=== PATIENT | male | born 1980 | race Caucasian/White ===

== ENCOUNTER 2016-07-11 08:43 | Emergency (ER) | payer SELFPAY ==
[2016-07-11 08:54] VITALS: BMI 30.2
[2016-07-11] MEDS ORDERED: MORPHINE 4 MG/ML INJECTION IV ONE ×2 (09:40→11:25)
[2016-07-11] MEDS ORDERED: ONDANSETRON HCL 4 MG/2 ML VIAL IV ONE (09:40)
[2016-07-11] MEDS ORDERED: NS 1,000 ML IV ONE (09:40)
[2016-07-11] MEDS ORDERED: Pharmacy Review for Metformin - IV Contrast Given SCH (10:00)
[2016-07-11 10:07] LABS: AUTOMATED BASOPHIL 0.5 % (0-2); AUTOMATED EOSINOPHIL 3.4 % (0-5); AUTOMATED LYMPH 11.4 % (17-44); AUTOMATED MONOCYTE 8.6 % (3-10); AUTOMATED NEUTROPHIL 76.1 % (45-76); MPV 8.5 fL (7.4-10.4)
[2016-07-11 10:17] LABS: BLOOD UREA NITROGEN 10 MG/DL (9-20); CALCIUM 9.7 MG/DL (8.4-10.2); CALCULATED OSMOLALITY 266 MOs/Kg (270-290); CHLORIDE 103 mEq/L (98-107); GLUCOSE 87 MG/DL (70-99); SODIUM LEVEL 139 mEq/L (137-146); TOTAL PROTEIN 7.8 G/DL (6.3-8.2)
[2016-07-11 10:18] LABS: LEUKOCYTES/URINE NEG (NEGATIVE); NITRITE/URINE NEG (NEGATIVE); RBC/URINE 0-2 (0-2); URINE OCCULT BLOOD NEG (NEG/TRACE); WBC/URINE 0-2 (0-2)
--- NOTE | 2016-07-11 10:26 | EDPRACDOC ---
- General Information Chief Complaint: Abdominal Pain Stated Complaint: ABD PAIN/ VOMITING Time Seen by Provider: 07/11/16 09:16 Information Source: Patient Mode Of Arrival: Car Home Medications: Home Medications Ondansetron [Zofran Odt] 4 mg PO Q6H PRN #20 tab.rapdis 07/11/16 Oxycodone Immediate Release [Oxycodone Immediate Release (OxyIR)] 5 mg PO Q6H PRN #20 tab 07/11/16 Allergies/Adverse Reactions: Allergies Allergy/AdvReac Type Severity Reaction Status Date / Time No Known Allergies Allergy Verified 07/11/16 08:54 - History of Present Illness Onset: THIS AM HPI: PT PRESENTS WITH NAUSEA, VOMITING, LLQ PAIN THAT BEGAN LAST NIGHT. DENIES FEVER OR CHILLS. DENIES DIARRHEA. PT HAS NEVER HAD ANY ABDOMINAL SURGERIES. PT STATES HE HAS HAD DYSURIA, NO TESTICULAR PAIN. Pain Location: Reports: LLQ Pain Context: Reports: Spontaneous Pain Severity: Moderate Pain Quality: Reports: Sharp, Stabbing Pain Radiation: Reports: No Radiation Adult Abdominal History: Denies: Abdominal Surgery, Urolithiasis, Bowel Obstruction, Similar Pain (dx) Modifying Factors: improves with: Nothing Associated Signs & Symptoms: Reports: Nausea, Vomiting Oral Intake: Decreased Urinary Output: Normal ED Past Medical History - History Reviewed Yes Nurses notes reviewed and agree except as marked - Patient Medical History Psychological History: Denies: Depression - Social Medical History Smoking Status: Heavy tobacco smoker (5 or more cigarettes/day or daily pipe/ cigar) EDM Review of Systems - Review of Systems ROS Negative Except as Marked: Yes All systems reviewed and were negative except as marked - Physical Exam Constitutional: Alert (PT APPEARS UNCOMFORTABLE) Oriented to: Time, Person, Place Last recorded Vital Signs: Last Vital Signs Temp 98.1 F 07/11/16 11:19 Pulse 69 07/11/16 12:05 Resp 18 07/11/16 12:05 BP 118/79 07/11/16 12:05 Pulse Ox 96 07/11/16 12:05 Oxygen Pulse Oxygen Saturation 96 O2 Device Room Air Oxygen Flow Rate Fraction of Inspired Oxygen ( FIO2) - HEENT Head: Normal ( normocephalic) Eye Exam: Normal (PERRL, EOMI, Sclera white) Oropharynx: Normal (Pharynx:Moist without exudate,Gums-no swelling) Nose: No Symptoms Reported (septum midline) Neck: Normal (FROM, trachea at midline) - Respiratory/Cardiovascular Respiratory: Normal - CTA (BBS clear to auscultation without adventitious sounds ) Cardiovascular: Normal (RRR without murmur, gallop or rub) - GI Auscultation: Normal (NABS) Palpation: Normal (Soft,No rebound or guarding, non distended) Tenderness: Moderate, LLQ Garcia's Sign: Negative Rectal Exam: Deferred - Musculoskeletal Back: Normal (Non-Tender) Extremities: Normal (Normal tone, Pulses 2+ No cyanosis or edema, FROM) - Integumentary Skin: Normal, Warm, Dry Lymphatics: Normal (no adenopathy) - Neurologic Memory Impaired: Normal Motor Function: Normal (Normal tone, Pulses 2+ No cyanosis or edema, FROM) Cranial Nerve: Normal (CN II-X11 intact sensation, strength 5/5) Cerebellar: Normal Mood Description: Normal Perception: Normal - Differential Diagnosis Diverticulitis, Gastroenteritis - Results All Results Reviewed and Normal except as Highlighted below: Yes 07/11/16 09:05 07/11/16 09:05 WBC 7.2 xk/uL (3.8-10.8) 07/11/16 09:05 RBC 4.89 xM/uL (4.70-6.10) 07/11/16 09:05 Hgb 16.3 g/dL (14.0-18.0) 07/11/16 09:05 Hct 48.1 % (42-52) 07/11/16 09:05 MCV 98 fL (80-94) H 07/11/16 09:05 MCH 33.3 pg (27-32) H 07/11/16 09:05 MCHC 33.8 g/dl (33-36) 07/11/16 09:05 RDW 14.3 % (11.5-14.5) 07/11/16 09:05 Plt Count 204 xk/uL (130-400) 07/11/16 09:05 MPV 8.5 fL (7.4-10.4) 07/11/16 09:05 Neut % (Auto) 76.1 % (45-76) H 07/11/16 09:05 Lymph % (Auto) 11.4 % (17-44) L 07/11/16 09:05 [place] % (Auto) 8.6 % (3-10) 07/11/16 09:05 Eos % (Auto) 3.4 % (0-5) 07/11/16 09:05 Baso % (Auto) 0.5 % (0-2) 07/11/16 09:05 Absolute Neuts (auto) 5.47 xk/uL (1.7-8.2) 07/11/16 09:05 Absolute Lymphs (auto) 0.79 xk/uL (0.65-4.75) 07/11/16 09:05 Sodium 139 mEq/L (137-146) 07/11/16 09:05 Potassium 4.7 mEq/L (3.5-5.1) 07/11/16 09:05 Chloride 103 mEq/L (98-107) 07/11/16 09:05 Carbon Dioxide 25 mMOL/L (22-33) 07/11/16 09:05 Anion Gap 16 mEq/L (8-16) 07/11/16 09:05 BUN 10 MG/DL (9-20) 07/11/16 09:05 Creatinine 0.70 MG/DL (0.66-1.25) 07/11/16 09:05 Estimated GFR (MDRD) > 60 mL/min (>=60) 07/11/16 09:05 Glucose 87 MG/DL (70-99) 07/11/16 09:05 Calculated Osmolality 266 MOs/Kg (270-290) L 07/11/16 09:05 Calcium 9.7 MG/DL (8.4-10.2) 07/11/16 09:05 Total Bilirubin 2.3 MG/DL (0.2-1.3) H 07/11/16 09:05 AST 52 IU/L (17-59) 07/11/16 09:05 ALT 55 IU/L (21-72) 07/11/16 09:05 Alkaline Phosphatase 96 IU/L (38-126) 07/11/16 09:05 Total Protein 7.8 G/DL (6.3-8.2) 07/11/16 09:05 Albumin 4.5 G/DL (3.5-5.0) 07/11/16 09:05 Lipase 101 U/L (23-300) 07/11/16 09:05 Urine Color Yellow 07/11/16 09:50 Urine Clarity Clear 07/11/16 09:50 Urine pH 5.0 (5.0-8.0) 07/11/16 09:50 Ur Specific [place] 1.025 (1.003-1.035) 07/11/16 09:50 Urine Protein Neg (NEG/TRACE) 07/11/16 09:50 Urine Glucose (UA) Neg (NEGATIVE) 07/11/16 09:50 Urine Ketones 1+ (NEGATIVE) H 07/11/16 09:50 Urine Occult Blood Neg (NEG/TRACE) 07/11/16 09:50 Urine Nitrite Neg (NEGATIVE) 07/11/16 09:50 Urine Bilirubin Neg (NEGATIVE) 07/11/16 09:50 Urine Urobilinogen <2.0 MG/DL (0-1) 07/11/16 09:50 Ur Leukocyte Esterase Neg (NEGATIVE) 07/11/16 09:50 Urine RBC 0-2 (0-2) 07/11/16 09:50 Urine WBC 0-2 (0-2) 07/11/16 09:50 Ur Epithelial Cells Occ 07/11/16 09:50 Urine Bacteria Few (NEG/FEW) 07/11/16 09:50 Urine Mucus Large (NEG/OCC) 07/11/16 09:50 Lab Results 07/11/16 07/11/16 07/11/16 09:50 09:05 09:05 WBC 7.2 RBC 4.89 Hgb 16.3 Hct 48.1 MCV 98 H MCH 33.3 H MCHC 33.8 RDW 14.3 Plt Count 204 MPV 8.5 Neut % (Auto) 76.1 H Lymph % (Auto) 11.4 L [place] % (Auto) 8.6 Eos % (Auto) 3.4 Baso % (Auto) 0.5 Absolute Neuts (auto) 5.47 Absolute Lymphs (auto) 0.79 Sodium 139 Potassium 4.7 Chloride 103 Carbon Dioxide 25 Anion Gap 16 BUN 10 Creatinine 0.70 Estimated GFR (MDRD) > 60 Glucose 87 Calculated Osmolality 266 L Calcium 9.7 Total Bilirubin 2.3 H AST 52 ALT 55 Alkaline Phosphatase 96 Total Protein 7.8 Albumin 4.5 Lipase 101 Urine Color Yellow Urine Clarity Clear Urine pH 5.0 Ur Specific [place] 1.025 Urine Protein Neg Urine Glucose (UA) Neg Urine Ketones 1+ H Urine Occult Blood Neg Urine Nitrite Neg Urine Bilirubin Neg Urine Urobilinogen <2.0 Ur Leukocyte Esterase Neg Urine RBC 0-2 Urine WBC 0-2 Ur Epithelial Cells Occ Urine Bacteria Few Urine Mucus Large - Diagnostic Imaging Abdomen Image interpreted by: Radiologist 07/11/16 12:22 Exam(s): [id number] CT/CT ABD-PELV W/IV CM CLINICAL DATA: Left lower quadrant abdominal pain with nausea and vomiting for 1 day. EXAM: CT ABDOMEN AND PELVIS WITH CONTRAST TECHNIQUE: Multidetector CT imaging of the abdomen and pelvis was performed using the standard protocol following bolus administration of intravenous contrast. CONTRAST: 100 cc Isovue 370 COMPARISON: CT scan 04/17/2011 FINDINGS: Lower chest: The lung bases are clear of acute process. No pleural effusion or pulmonary lesions. The heart is normal in size. No pericardial effusion. The distal esophagus and aorta are unremarkable. Hepatobiliary: No focal hepatic lesions or intrahepatic biliary dilatation. The gallbladder is normal. No common bile duct dilatation. Pancreas: No mass, inflammation or ductal dilatation. Tiny duodenum diverticulum noted near the pancreatic head. Spleen: Normal size. No focal lesions. Adrenals/Urinary Tract: The adrenal glands are normal. Both kidneys are normal except for lower pole right renal calculi. No obstructing ureteral calculi or bladder calculi. Stomach/Bowel: The stomach, duodenum, small bowel and colon are unremarkable. No inflammatory changes, mass lesions or obstructive findings. The terminal ileum is normal. The appendix is normal. Advanced diverticulosis involving the descending and sigmoid colon for the patient's age but no findings for acute diverticulitis. Vascular/Lymphatic: No mesenteric or retroperitoneal mass or adenopathy. Small scattered lymph nodes are noted. The aorta and branch vessels are normal. The major venous structures are patent. Other: The bladder, prostate gland and seminal vesicles are unremarkable. No pelvic mass or adenopathy. No free pelvic fluid collections. No inguinal mass or adenopathy. Musculoskeletal: No significant bony findings. There are bilateral pars defects at L5 with a grade 1 spondylolisthesis. IMPRESSION: 1. No acute abdominal/pelvic findings, mass lesions or adenopathy. 2. Age advanced diverticulosis involving the descending and sigmoid colon but no findings for acute diverticulitis. 3. Bilateral pars defects at L5 with a grade 1 spondylolisthesis. Decision Time to Discharge: 12:21 - Departure Disposition: Home Condition: Stable Final Diagnosis: Diverticulosis Qualifiers: Diverticulosis site: diverticulosis of small and large intestine Diverticulosis bleeding: diverticulosis without bleeding Qualified Code(s): K57.50 - Diverticulosis of both small and large intestine without perforation or abscess without bleeding Instructions: Diverticulosis (ED), Diverticulosis Diet (ED) Education/Counseling Given To: Patient Education/Counseling Given Regarding: Diagnosis, Treatment, Prognosis, Follow Up Referrals: Leon Steve MD [Staff Physician] - One Week Yogi Carter MD [Staff Physician] - One Week Prescriptions: Ondansetron [Zofran Odt] 4 mg PO Q6H PRN #20 tab.rapdis PRN Reason: Nausea/Vomiting Oxycodone Immediate Release [Oxycodone Immediate Release (OxyIR)] 5 mg PO Q6H PRN #20 tab PRN Reason: Pain Additional Instructions: FOLLOW UP WITH PCP NEXT WEEK. IF PAIN PERSIST FOLLOW UP WITH GI SPECIALIST. RETURN TO THE ED FOR WORSENING SYMPTOMS OR CONCERNS.
[2016-07-11 11:19] VITALS: TEMP 98.1
--- NOTE | 2016-07-11 12:08 | DIRPT ---
CLINICAL DATA: Left lower quadrant abdominal pain with nausea and vomiting for 1 day. EXAM: CT ABDOMEN AND PELVIS WITH CONTRAST TECHNIQUE: Multidetector CT imaging of the abdomen and pelvis was performed using the standard protocol following bolus administration of intravenous contrast. CONTRAST: 100 cc Isovue 370 COMPARISON: CT scan 04/17/2011 FINDINGS: Lower chest: The lung bases are clear of acute process. No pleural effusion or pulmonary lesions. The heart is normal in size. No pericardial effusion. The distal esophagus and aorta are unremarkable. Hepatobiliary: No focal hepatic lesions or intrahepatic biliary dilatation. The gallbladder is normal. No common bile duct dilatation. Pancreas: No mass, inflammation or ductal dilatation. Tiny duodenum diverticulum noted near the pancreatic head. Spleen: Normal size. No focal lesions. Adrenals/Urinary Tract: The adrenal glands are normal. Both kidneys are normal except for lower pole right renal calculi. No obstructing ureteral calculi or bladder calculi. Stomach/Bowel: The stomach, duodenum, small bowel and colon are unremarkable. No inflammatory changes, mass lesions or obstructive findings. The terminal ileum is normal. The appendix is normal. Advanced diverticulosis involving the descending and sigmoid colon for the patient's age but no findings for acute diverticulitis. Vascular/Lymphatic: No mesenteric or retroperitoneal mass or adenopathy. Small scattered lymph nodes are noted. The aorta and branch vessels are normal. The major venous structures are patent. Other: The bladder, prostate gland and seminal vesicles are unremarkable. No pelvic mass or adenopathy. No free pelvic fluid collections. No inguinal mass or adenopathy. Musculoskeletal: No significant bony findings. There are bilateral pars defects at L5 with a grade 1 spondylolisthesis. IMPRESSION: 1. No acute abdominal/pelvic findings, mass lesions or adenopathy. 2. Age advanced diverticulosis involving the descending and sigmoid colon but no findings for acute diverticulitis. 3. Bilateral pars defects at L5 with a grade 1 spondylolisthesis. Electronically Signed By: Celso Ramachandran M.D. On: 07/11/2016 12:05
[2016-07-11 12:36] VITALS: BP 124/83; PULSE 68
== END 2016-07-11 12:42 | disposition home or self-care (01) ==
LOC: ED 08:43
DX: K57.50 Diverticulosis of both small and large intestine without perforation or abscess without bleeding (principal)
CPT/HCPCS: 36415; 74177; 80053; 81001; 83690; 85025; 96361; 96374; 96375; 96376; 99284; A9698; J2270; J2405